=== PATIENT | female | born 1955 | race African-American/Black ===

== ENCOUNTER → 2016-09-14 | Outpatient (CLI) | payer MEDICARE, OTHER ==
[2016-03-25 15:13] VITALS: BP 87/52
[~2016-09-14] MED LIST: ASPI81TA44 PO; ATOR40TA PO; ATORVASTATIN CA80 MG PO; CLOP75TA27 PO; FURO40TA4 PO; IBUP200C PO; IOHEXOL 180 MG/ML 10 ML VIAL. ONE; LISI1TAB5 PO; MELA3TAB PO; METO25TA2 PO; NICO1PAT21 TP; PANT40GR PO; POTA10CA PO; TRAM50TA PO; methylPREDNISolone ACETATE 40 MG/ML VIAL. ONE; methylPREDNISolone ACETATE 80 MG/ML VIAL. ONE
--- NOTE | 2016-09-15 05:39 | PAIN ---
DATE OF SERVICE: 09/14/2016 DIAGNOSIS: Lumbar radiculopathy with lumbar degenerative disk disease and lumbar spinal stenosis. HISTORY OF PRESENT ILLNESS: The patient is a 60-year-old female who returns for followup status post lumbar epidural steroid injection x 2. The patient reports initially approximately 80% improvement, but now is about 40% improvement since her last injection, 08/05/2016. The patient reports the pain is returning in the left low back and leg as it was previously, mostly in the lateral aspect of the thigh, posterior thigh, and anterior thigh on the left side. The patient reports no significant pain on the right side, but also some pain in the mid and low back on the left. The patient reports it as a 7 on a scale of 10, describes it as aching and dull with radiating pain as noted, worse with standing and walking, changing positions, sitting and waking her from sleep, once again, no bowel or bladder incontinence, no new motor or sensory deficits. PHYSICAL EXAMINATION: VITAL SIGNS: The patient's blood pressure 141/87, pulse 84, respirations 18, temperature 98.2 degrees Fahrenheit, weight is 212 pounds. GENERAL: The patient is awake, alert, oriented, appropriate, very pleasant demeanor. HEENT: Shows normocephalic, atraumatic. Extraocular movements are intact and symmetrical. Oral cavity shows mucous membranes moist and pink. Dentition is intact. NECK: Shows anterior throat supple without palpable lymphadenopathy noted. Swallow reflex is symmetrical. Neck shows full rotational motion of the cervical spine without difficulty. CHEST: Shows normal on inspection. Breath sounds are clear to auscultation bilaterally. HEART: Shows S1 and S2 clear. ABDOMEN: Obese, soft, nontender, nondistended. No palpable organomegaly is noted. BACK: Shows spine grossly midline. Slight exaggeration of thoracic kyphosis and some mild flattening of lumbar lordotic curvature. Lumbar paraspinous musculature shows some moderate tenderness with palpation bilaterally, more on the left than the right in the lower lumbar distribution, is more firm on the left than the right, but appears roughly symmetrical. No tenderness over the sacrum or sacroiliac regions. The patient shows good rotational motion of the lumbar spine, both laterally as well as extension and flexion without difficulty. EXTREMITIES: Lower extremities showed deep tendon reflexes 1+ in the patellar and tendo calcaneus tendons are equal. Motor exam is strong with 5/5 dorsiflexion, extension, quadriceps and hamstring flexion and is symmetrical. PLAN: The patient's old chart was reviewed as her current medication regimen updated. Current review of systems updated today as well. We discussed options and will proceed with a lumbar epidural steroid injection, the third in the series with fluoroscopic guidance. Risks were again discussed including, but not limited to bleeding, infection, possibility of epidural hematoma, subsequent neurologic compromise, dural puncture, headaches, spinal cord and/or nerve damage, side effects of steroid medication, and poor results regarding pain control. The patient understands and wishes to proceed. The patient will return to clinic in approximately 2 weeks for followup, was counseled on return appointment, activity level, and side effects to be aware of. DIAGNOSIS: Lumbar radiculopathy with lumbar spinal stenosis and degenerative disk disease. PROCEDURE: Lumbar epidural steroid injection, translaminar approach at the L4-L5 level with fluoroscopic guidance under sterile prep and drape using local anesthesia. Medication injected 120 mg Depo-Medrol plus 10 mL preservative-free normal saline and 2 mL Isovue for contrast. Condition at discharge is stable. The patient tolerated procedure well, had no complications. HELADIO VOGT MD DR: YOGESH/richard JOB#: [id number] / [id number]
== END ==
LOC: PNCL 08:54
PROVIDERS: ATTEND Anesthesiology
DX: M51.16 Intervertebral disc disorders with radiculopathy, lumbar region (principal); M48.06 Spinal stenosis, lumbar region; M19.90 Unspecified osteoarthritis, unspecified site; M81.0 Age-related osteoporosis without current pathological fracture; F32.9 Major depressive disorder, single episode, unspecified; I10 Essential (primary) hypertension; J44.9 Chronic obstructive pulmonary disease, unspecified; Z90.710 Acquired absence of both cervix and uterus; Z90.49 Acquired absence of other specified parts of digestive tract
CPT/HCPCS: 62323; J1030; J1040

== ENCOUNTER → 2017-02-01 | Outpatient (CLI) | payer MEDICARE, OTHER ==
[2016-03-25 15:13] VITALS: BP 87/52
[~2017-02-01] MED LIST changes: -IOHEXOL 180 MG/ML 10 ML VIAL. ONE; -POTA10CA PO; +POTASSIUM CHLO10 MEQ PO; -methylPREDNISolone ACETATE 40 MG/ML VIAL. ONE; -methylPREDNISolone ACETATE 80 MG/ML VIAL. ONE
--- NOTE | 2017-02-01 15:33 | RAD ---
DATE: 02/01/2017 EXAM: DIGITAL SCREEN BILAT W/CAD HISTORY: Screening COMPARISON: 12/16/2015 This study was interpreted with the benefit of Computerized Aided Detection (CAD). FINDINGS: Breast Density: SCATTERED The breast parenchyma shows scattered fibroglandular densities. Breast parenchyma level B. There has been little change compared to the previous exam IMPRESSION: Benign findings BI-RADS CATEGORY: 2 BENIGN FINDING(S) RECOMMENDED FOLLOW-UP: 12M 12 MONTH FOLLOW-UP PQRS compliance statement: Patient information was entered into a reminder system with a target due date 02/01/2018 for the next mammogram. Mammography is a sensitive method for finding small breast cancers, but it does not detect them all and is not a substitute for careful clinical examination. A negative mammogram does not negate a clinically suspicious finding and should not result in delay in biopsying a clinically suspicious abnormality. "Our facility is accredited by the [employer] Mammography Program."
== END | disposition home or self-care (01) ==
LOC: MAMMO 14:43
PROVIDERS: ATTEND Internal Medicine
DX: Z12.31 Encounter for screening mammogram for malignant neoplasm of breast (principal)
CPT/HCPCS: G0202; 77067

== ENCOUNTER 2017-07-12 17:19 | Emergency (ER) | payer MEDICARE, OTHER ==
[~2017-07-12] VITALS: Ht 160 cm; Wt 90.7 kg
[~2017-07-12 17:19] MED LIST changes: +ALBU2.5V5 NEB; +AMMO226L TP; +ASPI-482 PO; -CLOP75TA27 PO; +CLOP75TA57 PO; +FURO80TA72 PO; +LOSA25TA4 PO; -MELA3TAB PO; +MELA3TAB2 PO; +POTA20TA82 PO; +VENTOLIN HFA18 GM INH
[2017-07-12 18:16] LABS: BASO # 0.1 x10^3/uL (0.0-0.2); BASO % 1 % (0-3); EOS % 2 % (0-3); HEMATOCRIT 42.1 % (36.0-47.0); HEMOGLOBIN 13.8 g/dL (12.0-15.5); LYMPH # 4.8 x10^3/uL (1.0-4.8); LYMPH % 45 % (24-48); MEAN CORPUSCULAR HEMOGLOBIN 31 pg (25-35); MEAN CORPUSCULAR HGB CONC 33 g/dL (31-37); MEAN CORPUSCULAR VOLUME 95 fL (79-100); MONO % 6 % (0-9); NEUT % 45 % (31-73); PLATELET COUNT 306 x10^3/uL (140-400); RED BLOOD COUNT 4.42 x10^6/uL (3.50-5.40); RED CELL DISTRIBUTION WIDTH 14.8 % (11.5-14.5); WHITE BLOOD COUNT 10.7 x10^3/uL (4.0-11.0)
[2017-07-12 18:29] LABS: CALCIUM 9.3 mg/dL (8.5-10.1); CREATININE 1.1 mg/dL (0.6-1.0); GFR 61.5; POTASSIUM 3.8 mmol/L (3.5-5.1)
[2017-07-12 18:35] LABS: ALBUMIN 3.1 g/dL (3.4-5.0); ALBUMIN/GLOBULIN RATIO 0.7 (1.0-1.7); TOTAL BILIRUBIN 0.2 mg/dL (0.2-1.0); TOTAL PROTEIN 7.5 g/dL (6.4-8.2)
--- NOTE | 2017-07-12 18:59 | PHYS DOC ---
Past Medical History Past Medical History: COPD, High Cholesterol, Hypertension, [place], Other Additional Past Medical Histor: HEP B Past Surgical History: Cholecystectomy, Hysterectomy, Other Additional Past Surgical Histo: HERNIA REPAIR Alcohol Use: None Drug Use: Marijuana Adult General Chief Complaint Chief Complaint: CHEST PAIN [facility] HPI Patient is a 61 year old female who presents with on a four-hour history of middle chest pain that's been intermittent in intensity mild nonexertional described as burning she believes is due to reflux. Recent diagnosis of CHF denies any coronary artery disease or blockages. History of COPD, hypertension and tobacco use. Review of Systems Review of Systems Constitutional: Denies fever or chills [] Eyes: Denies change in visual acuity, redness, or eye pain [] HENT: Denies nasal congestion or sore throat [] Respiratory: Denies cough or shortness of breath [] Cardiovascular: No additional information not addressed in HPI [] GI: Denies abdominal pain, nausea, vomiting, bloody stools or diarrhea [] : Denies dysuria or hematuria [] Musculoskeletal: Denies back pain or joint pain [] Integument: Denies rash or skin lesions [] Neurologic: Denies headache, focal weakness or sensory changes [] Endocrine: Denies polyuria or polydipsia [] All other systems were reviewed and found to be within normal limits, except as documented in this note. Allergies Allergies Allergies Coded Allergies Type Severity Reaction Last Updated Verified ampicillin Allergy Intermediate 07/11/15 Yes Physical Exam Physical Exam Constitutional: Well developed, well nourished, no acute distress, non-toxic appearance. [] HENT: Normocephalic, atraumatic, bilateral external ears normal, oropharynx moist, no oral exudates, nose normal. [] Eyes: PERRLA, EOMI, conjunctiva normal, no discharge. [] Neck: Normal range of motion, no tenderness, supple, no stridor. [] Cardiovascular:Heart rate regular rhythm, no murmur [] Lungs & Thorax: Bilateral breath sounds clear to auscultation [] Abdomen: Bowel sounds normal, soft, no tenderness, no masses, no pulsatile masses. [] Skin: Warm, dry, no erythema, no rash. [] Back: No tenderness, no CVA tenderness. [] Extremities: No tenderness, no cyanosis, no clubbing, ROM intact, no edema. [] Neurologic: Alert and oriented X 3, normal motor function, normal sensory function, no focal deficits noted. [] Psychologic: Affect normal, judgement normal, mood normal. [] Current Patient Data Vital Signs Vital Signs Date Time Temp Pulse Resp B/P (MAP) Pulse Ox O2 Delivery O2 Flow Rate FiO2 07/12/17 19:00 82 18 129/60 (83) 98 Room Air 07/12/17 17:25 98.4 98.4 Lab Values Laboratory Tests Test 07/12/17 17:33 White Blood Count 10.7 x10^3/uL (4.0-11.0) Red Blood Count 4.42 x10^6/uL (3.50-5.40) Hemoglobin 13.8 g/dL (12.0-15.5) Hematocrit 42.1 % (36.0-47.0) Mean Corpuscular Volume 95 fL (79-100) Mean Corpuscular Hemoglobin 31 pg (25-35) Mean Corpuscular Hemoglobin Concent 33 g/dL (31-37) Red Cell Distribution Width 14.8 % (11.5-14.5) H Platelet Count 306 x10^3/uL (140-400) Neutrophils (%) (Auto) 45 % (31-73) Lymphocytes (%) (Auto) 45 % (24-48) Monocytes (%) (Auto) 6 % (0-9) Eosinophils (%) (Auto) 2 % (0-3) Basophils (%) (Auto) 1 % (0-3) Neutrophils # (Auto) 4.8 x10^3uL (1.8-7.7) Lymphocytes # (Auto) 4.8 x10^3/uL (1.0-4.8) Monocytes # (Auto) 0.7 x10^3/uL (0.0-1.1) Eosinophils # (Auto) 0.2 x10^3/uL (0.0-0.7) Basophils # (Auto) 0.1 x10^3/uL (0.0-0.2) Sodium Level 141 mmol/L (136-145) Potassium Level 3.8 mmol/L (3.5-5.1) Chloride Level 106 mmol/L (98-107) Carbon Dioxide Level 28 mmol/L (21-32) Anion Gap 7 (6-14) Blood Urea Nitrogen 17 mg/dL (7-20) Creatinine 1.1 mg/dL (0.6-1.0) H Estimated GFR (Cockcroft-Gault) 61.5 BUN/Creatinine Ratio 15 (6-20) Glucose Level 97 mg/dL (70-99) Calcium Level 9.3 mg/dL (8.5-10.1) Total Bilirubin 0.2 mg/dL (0.2-1.0) Aspartate Amino Transferase (AST) 16 U/L (15-37) Alanine Aminotransferase (ALT) 20 U/L (14-59) Alkaline Phosphatase 166 U/L (46-116) H Troponin I Quantitative < 0.017 ng/mL (0.000-0.055) Total Protein 7.5 g/dL (6.4-8.2) Albumin 3.1 g/dL (3.4-5.0) L Albumin/Globulin Ratio 0.7 (1.0-1.7) L Laboratory Tests 07/12/17 17:33 Laboratory Tests 07/12/17 17:33 EKG EKG EKG sinus rhythm rate of 86 no STEMI QTC 439 my interpretation[] Radiology/Procedures Radiology/Procedures Chest x-ray no acute cardiopulmonary process seen my interpretation my review of the images[] Course & Med Decision Making Course & Med Decision Making Pertinent Labs and Imaging studies reviewed. (See chart for details) [Patient's workup was negative patient feels better and wants to go home] Dragon Disclaimer Dragon Disclaimer This electronic medical record was generated, in whole or in part, using a voice recognition dictation system. Departure Departure Impression: Primary Impression: Acute chest pain Disposition: 01 HOME, SELF-CARE Condition: STABLE Referrals: LONI ROSADO MD (PCP) Patient Instructions: Chest Pain (Nonspecific), Yzqh-le-Anit Scripts Sucralfate (CARAFATE) 1 Gm Tablet 1 TAB PO QID, #120 TAB 1 Refill Prov: SIDNEY LEMON MD 07/12/17 Omeprazole Magnesium (PRILOSEC OTC) 20 Mg Tablet. 1 TAB PO DAILY, #14 TAB 0 Refills Prov: SIDNEY LEMON MD 07/12/17 SIDNEY LEMON MD Jul 12, 2017 18:59
[2017-07-12 19:00] VITALS: BP 129/60
[2017-07-12] MEDS ORDERED: SUCR1TAB35 PO (19:02)
[2017-07-12] MEDS ORDERED: OMEP20TA63 PO (19:02)
--- NOTE | 2017-07-13 07:08 | EKG ---
[facility] [address] [place] [address] Test Date: 2017-07-12 Test Time: 17:34:08 Pat Name: JUVENCIO FLORES Department: Room: Gender: F Poster: : 1955 Requested By: SIDNEY LEMON Order Number: [id number] Reading MD: Fahad Serrano MD Measurements Intervals [place] Rate: 86 P: 65 AK: 136 QRS: 60 QRSD: 82 T: 43 QT: 364 QTc: 439 Interpretive Statements SINUS RHYTHM VENTRICULAR PREMATURE COMPLEX(ES) ATRIAL PREMATURE COMPLEX(ES) Electronically Signed On 07-13-2017 8:31:44 PRODUCT SUPPORT TECHNICIAN by Fahad Serrano MD
--- NOTE | 2017-07-13 07:38 | RAD ---
Portable chest, 07/12/2017: History: Chest pain Comparison is made to a study from 06/07/2017. The heart size and pulmonary vascularity are normal. A calcified granuloma is present in the right base. No acute infiltrates are seen. There is no evidence of pleural fluid. IMPRESSION: No acute cardiopulmonary abnormality is detected.
== END 2017-07-12 19:09 | disposition home or self-care (01) ==
LOC: ER 17:19
DX: R07.89 Other chest pain (principal); J44.9 Chronic obstructive pulmonary disease, unspecified; E78.00 Pure hypercholesterolemia, unspecified; I10 Essential (primary) hypertension; F12.10 Cannabis abuse, uncomplicated; I25.2 Old myocardial infarction; F17.200 Nicotine dependence, unspecified, uncomplicated; Z90.710 Acquired absence of both cervix and uterus; Z90.49 Acquired absence of other specified parts of digestive tract; Z88.1 Allergy status to other antibiotic agents
CPT/HCPCS: 36415; 71010; 80053; 84484; 85025; 93005; 99285-25

== ENCOUNTER → 2017-08-30 | Outpatient (CLI) | payer OTHER | END | disposition home or self-care (01) | LOC: RT 18:31 | DX: G47.30 Sleep apnea, unspecified (principal); R06.83 Snoring; R53.83 Other fatigue | CPT/HCPCS: 95810 ==

== ENCOUNTER → 2018-02-07 | Outpatient (CLI) | payer OTHER | END | disposition home or self-care (01) | LOC: MAMMO 08:47 | DX: Z12.31 Encounter for screening mammogram for malignant neoplasm of breast (principal) | CPT/HCPCS: 77067 ==

== ENCOUNTER 2018-11-01 20:23 | Emergency (ER) | payer OTHER ==
[~2018-11-01] VITALS: Ht 160 cm; Wt 89.8 kg
[~2018-11-01 20:23] MED LIST changes: -ASPI81TA44 PO; +ASPI81TA59 PO; -LOSA25TA4 PO; +LOSA25TA54 PO; +OMEP20TA63 PO; +POTA10TA12 PO; -POTASSIUM CHLO10 MEQ PO; +SUCR1TAB35 PO
[2018-11-01 21:00] VITALS: BP 169/77
[2018-11-01] MEDS ORDERED: DEXAMETHASONE 4 MG TABLET PO ONE (21:15)
[2018-11-01] MEDS ORDERED: PRED20TA PO (21:45)
--- NOTE | 2018-11-01 21:45 | PHYS DOC ---
Past Medical History Past Medical History: CHF, COPD, High Cholesterol, Hypertension, [place], Other Additional Past Medical Histor: HEP B Past Surgical History: Cholecystectomy, Hysterectomy, Other Additional Past Surgical Histo: HERNIA REPAIR Smoking: Cigarettes Alcohol Use: None Drug Use: Marijuana Adult General Chief Complaint Chief Complaint: COUGH HPI HPI 62 y/o female presents with 5 day history of cough. Reports now with right sided lateral chest pain x 1 hour. Denies fever/chills. Denies shortness of breath. Denies trauma. Reports some associated nasal congestion. Review of Systems Review of Systems Constitutional: Denies fever or chills [] Eyes: Denies change in visual acuity, redness, or eye pain [] HENT: Reports nasal congestion; denies sore throat [] Respiratory: Reports cough; denies shortness of breath [] Cardiovascular: Reports right sided chest wall pain, denies palpitations GI: Denies abdominal pain, nausea, vomiting, or diarrhea [] : Denies dysuria or hematuria [] Musculoskeletal: Denies back pain or joint pain [] Integument: Denies rash or skin lesions [] Neurologic: Denies headache, focal weakness or sensory changes [] Complete systems were reviewed and found to be within normal limits, except as documented in this note. Current Medications Current Medications Current Medications Medications (Trade) Dose Ordered Sig/Óscar Start Time Stop Time Status Last Admin Dose Admin Dexamethasone (Decadron) 10 mg 1X ONCE 11/01/18 21:15 11/01/18 21:16 DC 11/01/18 21:36 10 MG Allergies Allergies Allergies Coded Allergies Type Severity Reaction Last Updated Verified ampicillin Allergy Intermediate 07/11/15 Yes Physical Exam Physical Exam Constitutional: Well developed, well nourished, no acute distress, non-toxic appearance. [] HENT: Normocephalic, atraumatic, oropharynx moist, nasal congestion noted Eyes: Conjunctiva normal, no discharge. [] Neck: Normal range of motion, no tenderness, supple, no meningeal signs Cardiovascular: Heart rate regular rhythm, no murmur [] Lungs & Thorax: Bilateral breath sounds clear to auscultation [] Abdomen: Soft, no tenderness Skin: Warm, dry, no erythema, no rash. [] Back: No tenderness, no CVA tenderness. [] Extremities: No tenderness, ROM intact Neurologic: Alert and oriented X 3, normal motor function, normal sensory function, no focal deficits noted. [] Psychologic: Affect normal, judgement normal, mood normal. [] Current Patient Data Vital Signs Vital Signs Date Time Temp Pulse Resp B/P (MAP) Pulse Ox O2 Delivery O2 Flow Rate FiO2 11/01/18 21:00 105 19 169/77 (107) 100 Room Air 11/01/18 20:45 98.2 98.2 EKG EKG [] Radiology/Procedures Radiology/Procedures PROCEDURE: CHEST PA & LATERAL CHEST PA LATERAL History: Cough and congestion for a week Comparison: June 07, 2017 Findings: 2 views of the chest are submitted. There is no infiltrate, pneumothorax, or effusion. The cardiac silhouette is stable. There is a small nodule of the lateral right lung base as previously, likely granuloma. Impression: 1. There is no evidence of acute cardiopulmonary disease. Electronically signed by: Thien Thomason MD (11/01/2018 11:11 PM) [facility] Course & Med Decision Making Course & Med Decision Making Pertinent Labs and Imaging studies reviewed. (See chart for details) Patient presents with HPI and physical exam consistent for bronchitis. CXR without acute process. Symptomatic treatment provided. Patient stable for discharge home with close outpatient follow-up with PCP. Discussed findings and plan with patient, who acknowledges understanding and agreement. Dragon Disclaimer Dragon Disclaimer This electronic medical record was generated, in whole or in part, using a voice recognition dictation system. Departure Departure Impression: Primary Impression: Bronchitis Disposition: HOME, SELF-CARE Condition: STABLE Referrals: LONI ROSADO MD (PCP) Patient Instructions: Acute Bronchitis, Pris-sc-Gqkj Scripts Prednisone (PREDNISONE) 20 Mg Tablet 2 TAB PO DAILY, #8 TAB Start this medication tomorrow 11/02/18 Prov: TRICIA EDOUARD DO 11/01/18 TRICIA EDOUARD DO Nov 01, 2018 21:45
--- NOTE | 2018-11-01 23:14 | RAD ---
CHEST PA LATERAL History: Cough and congestion for a week Comparison: June 07, 2017 Findings: 2 views of the chest are submitted. There is no infiltrate, pneumothorax, or effusion. The cardiac silhouette is stable. There is a small nodule of the lateral right lung base as previously, likely granuloma. Impression: 1. There is no evidence of acute cardiopulmonary disease. Electronically signed by: Thien Thomason MD (11/01/2018 11:11 PM) [facility]
== END 2018-11-01 21:50 | disposition home or self-care (01) ==
LOC: ER 20:23
DX: J40 Bronchitis, not specified as acute or chronic (principal); I11.0 Hypertensive heart disease with heart failure; I50.9 Heart failure, unspecified; J44.9 Chronic obstructive pulmonary disease, unspecified; E78.00 Pure hypercholesterolemia, unspecified; I25.2 Old myocardial infarction; Z88.1 Allergy status to other antibiotic agents
CPT/HCPCS: 71046; 99283; J8540

== ENCOUNTER → 2019-02-07 | Outpatient (CLI) | payer OTHER ==
[~2019-02-07] MED LIST changes: +PRED20TA PO
--- NOTE | 2019-02-07 13:21 | RAD ---
DATE: 02/07/2019 EXAM: DIGITAL SCREEN BILAT W/CAD HISTORY: Routine screening COMPARISON: 02/07/2018 This study was interpreted with the benefit of Computerized Aided Detection (CAD). Breast Density: SCATTERED The breast parenchyma shows scattered fibroglandular densities. Breast parenchyma level B. FINDINGS: There is an unchanged small nodule in the posterior aspect of the left breast. No new or enlarging breast densities are seen. Benign type calcifications are present. No suspicious microcalcifications have developed. IMPRESSION: Stable mammograms without evidence of malignancy. BI-RADS CATEGORY: 2 BENIGN FINDING(S) RECOMMENDED FOLLOW-UP: 12M 12 MONTH FOLLOW-UP PQRS compliance statement: Patient information was entered into a reminder system with a target due date for the next mammogram. Mammography is a sensitive method for finding small breast cancers, but it does not detect them all and is not a substitute for careful clinical examination. A negative mammogram does not negate a clinically suspicious finding and should not result in delay in biopsying a clinically suspicious abnormality. "Our facility is accredited by the [employer] Mammography Program."
== END | disposition home or self-care (01) ==
LOC: MAMMO 12:05
PROVIDERS: ATTEND Internal Medicine
DX: Z12.31 Encounter for screening mammogram for malignant neoplasm of breast (principal); N63.20 Unspecified lump in the left breast, unspecified quadrant; N64.89 Other specified disorders of breast
CPT/HCPCS: 77067

== ENCOUNTER 2019-05-16 02:06 | Emergency (ER) | payer OTHER ==
[~2019-05-16] VITALS: Ht 160 cm; Wt 88.5 kg
[~2019-05-16 02:06] MED LIST changes: +LISI1TAB19 PO; -LISI1TAB5 PO; -MELA3TAB2 PO; +MELA3TAB56 PO
[2019-05-16] MEDS ORDERED: DOXY100C2 PO (03:56)
--- NOTE | 2019-05-16 03:57 | PHYS DOC ---
Past Medical History Past Medical History: CHF, COPD, High Cholesterol, Hypertension, [place], Other Additional Past Medical Histor: HEP B Past Surgical History: Cholecystectomy, Hysterectomy, Other Additional Past Surgical Histo: HERNIA REPAIR Alcohol Use: None Drug Use: Marijuana Adult General Chief Complaint Chief Complaint: SORE THROAT HPI HPI Patient is a 63 year old [f__sex] who presents with [] Review of Systems Review of Systems Constitutional: Denies fever or chills [] Eyes: Denies change in visual acuity, redness, or eye pain [] HENT: Denies nasal congestion or sore throat [] Respiratory: Denies cough or shortness of breath [] Cardiovascular: No additional information not addressed in HPI [] GI: Denies abdominal pain, nausea, vomiting, bloody stools or diarrhea [] : Denies dysuria or hematuria [] Musculoskeletal: Denies back pain or joint pain [] Integument: Denies rash or skin lesions [] Neurologic: Denies headache, focal weakness or sensory changes [] Endocrine: Denies polyuria or polydipsia [] All other systems were reviewed and found to be within normal limits, except as documented in this note. Allergies Allergies Allergies Coded Allergies Type Severity Reaction Last Updated Verified ampicillin Allergy Intermediate 07/11/15 Yes Physical Exam Physical Exam Constitutional: Well developed, well nourished, no acute distress, non-toxic appearance. [] HENT: Normocephalic, atraumatic, bilateral external ears normal, oropharynx moist, no oral exudates, nose normal. [] Eyes: PERRLA, EOMI, conjunctiva normal, no discharge. [] Neck: Normal range of motion, no tenderness, supple, no stridor. [] Cardiovascular:Heart rate regular rhythm, no murmur [] Lungs & Thorax: Bilateral breath sounds clear to auscultation [] Abdomen: Bowel sounds normal, soft, no tenderness, no masses, no pulsatile masses. [] Skin: Warm, dry, no erythema, no rash. [] Back: No tenderness, no CVA tenderness. [] Extremities: No tenderness, no cyanosis, no clubbing, ROM intact, no edema. [] Neurologic: Alert and oriented X 3, normal motor function, normal sensory function, no focal deficits noted. [] Psychologic: Affect normal, judgement normal, mood normal. [] Current Patient Data Vital Signs Vital Signs Date Time Temp Pulse Resp B/P (MAP) Pulse Ox O2 Delivery O2 Flow Rate FiO2 05/16/19 02:15 98.1 98 20 134/86 (102) 98 Room Air 98.1 EKG EKG [] Radiology/Procedures Radiology/Procedures [] Course & Med Decision Making Course & Med Decision Making Pertinent Labs and Imaging studies reviewed. (See chart for details) [] Dragon Disclaimer Dragon Disclaimer This electronic medical record was generated, in whole or in part, using a voice recognition dictation system. Departure Departure Impression: Primary Impression: Bronchitis Additional Impression: Sore throat (viral) Disposition: HOME, SELF-CARE Condition: STABLE Referrals: LONI ROSADO MD (PCP) Patient Instructions: Acute Bronchitis, Ybvh-[id number], Sore Throat, [id number] Additional Instructions: XR reviewed without consolidation Take antibiotics as prescribed for bronchitis Recommend smoking cessation Tylenol/Motrin as needed Consider mucinex OTC to help with breaking up mucus Return to the ER with complaints of altered mental status, fever, worsening SOB Scripts Doxycycline Hyclate (DOXYCYCLINE HYCLATE) 100 Mg Capsule 1 CAP PO BID, #14 CAP Prov: HOUSTON MARTE MD 05/16/19 Problem Qualifiers HOUSTON MARTE MD May 16, 2019 03:57
[2019-05-16 04:00] VITALS: BP 142/86
--- NOTE | 2019-05-16 04:46 | RAD ---
AP chest x-ray HISTORY: Cough and chills. COMPARISON: Chest x-ray November 01, 2018. FINDINGS: Heart size normal. Mediastinal silhouette is normal. No pneumothorax, pulmonary opacities or pleural effusions. Small calcified granuloma right lung base. The bones are unremarkable. IMPRESSION: No acute process. Electronically signed by: Chaitanya Centeno MD (05/16/2019 4:43 AM) [id number]
--- NOTE | 2019-05-16 15:37 | PHYS DOC ---
Past Medical History Past Medical History: CHF, COPD, High Cholesterol, Hypertension, [place], Other Additional Past Medical Histor: HEP B Past Surgical History: Cholecystectomy, Hysterectomy, Other Additional Past Surgical Histo: HERNIA REPAIR Alcohol Use: None Drug Use: Marijuana Adult General Chief Complaint Chief Complaint: SORE THROAT HPI HPI 63 yo female presents to the ER with complaints of cough, productive, sore throat x 1 week. Patient states she has been using OTC medications without relief. + tobacco use. She does have a history of HTN. Patient states subjective fever on exam. She denies chest pain, nausea, vomiting, abdominal pain, diarrhea. Review of Systems Review of Systems Constitutional: Denies fever or chills [] Eyes: Denies change in visual acuity, redness, or eye pain [] HENT: + sore throat Respiratory: + productive cough Cardiovascular: No additional information not addressed in HPI [] GI: Denies abdominal pain, nausea, vomiting, bloody stools or diarrhea [] Integument: Denies rash or skin lesions [] Neurologic: Denies headache, focal weakness or sensory changes [] All other systems were reviewed and found to be within normal limits, except as documented in this note. Allergies Allergies Allergies Coded Allergies Type Severity Reaction Last Updated Verified ampicillin Allergy Intermediate 07/11/15 Yes Physical Exam Physical Exam Constitutional: Well developed, well nourished, no acute distress, non-toxic appearance. [] HENT: Normocephalic, atraumatic, bilateral external ears normal, oropharynx moist, no oral exudates, nose normal. [] Eyes: PERRLA, EOMI, conjunctiva normal, no discharge. [] Cardiovascular:Heart rate regular rhythm, no murmur [] Lungs & Thorax: Bilateral breath sounds clear to auscultation [] Abdomen: Bowel sounds normal, soft, no tenderness, no masses, no pulsatile masses. [] Skin: Warm, dry, no erythema, no rash. [] Extremities: No tenderness, no edema. [] Neurologic: Alert and oriented X 3, no focal deficits noted. [] Psychologic: Affect normal, judgement normal, mood normal. [] Current Patient Data Vital Signs Vital Signs Date Time Temp Pulse Resp B/P (MAP) Pulse Ox O2 Delivery O2 Flow Rate FiO2 05/16/19 04:00 88 142/86 (104) 100 Room Air 05/16/19 02:15 98.1 20 98.1 EKG EKG [] Radiology/Procedures Radiology/Procedures [facility] [address] [place] [address] IMAGING REPORT Signed PATIENT: JUVENCIO FLORESACCOUNT: [id number] : 1955 LOCATION: ER AGE: 63 SEX: F EXAM STATUS: DEP ER ORD. PHYSICIAN: HOUSTON MARTE MD REASON: cough, chills PROCEDURE: CHEST AP ONLY AP chest x-ray HISTORY: Cough and chills. COMPARISON: Chest x-ray November 01, 2018. FINDINGS: Heart size normal. Mediastinal silhouette is normal. No pneumothorax, pulmonary opacities or pleural effusions. Small calcified granuloma right lung base. The bones are unremarkable. IMPRESSION: No acute process. Electronically signed by: Coty Centeno MD (05/16/2019 4:43 AM) [facility] DICTATED and SIGNED BY: COTY CENTENO MD DATE: 05/16/19 0443 [] Course & Med Decision Making Course & Med Decision Making Pertinent Labs and Imaging studies reviewed. (See chart for details) []63 yo female presents to the ER with complaints of cough, productive, sore throat x 1 week. Patient states she has been using OTC medications without relief. + tobacco use. She does have a history of HTN. Patient states subjective fever on exam. She denies chest pain, nausea, vomiting, abdominal pain, diarrhea. Imaging reviewed, no evidecne of acute process, this is likely related to bronchitis type infection. Plan for abx, continue inhalers as you are doing. Return to the ER with worsening SOB, fever, nausea/vomiting, altered mental status. Discussed dc plans with patient. Dragon Disclaimer Dragon Disclaimer This electronic medical record was generated, in whole or in part, using a voice recognition dictation system. Departure Departure Impression: Primary Impression: Bronchitis Additional Impression: Sore throat (viral) Disposition: HOME, SELF-CARE Condition: STABLE Referrals: LONI ROSADO MD (PCP) Patient Instructions: Acute Bronchitis, [id number]-[id number], Sore Throat, [id number] Additional Instructions: XR reviewed without consolidation Take antibiotics as prescribed for bronchitis Recommend smoking cessation Tylenol/Motrin as needed Consider mucinex OTC to help with breaking up mucus Return to the ER with complaints of altered mental status, fever, worsening SOB Scripts Doxycycline Hyclate (DOXYCYCLINE HYCLATE) 100 Mg Capsule 1 CAP PO BID, #14 CAP Prov: HOUSTON MARTE MD 05/16/19 Problem Qualifiers HOUSTON MARTE MD May 16, 2019 15:37
== END 2019-05-16 04:04 | disposition home or self-care (01) ==
LOC: ER 02:06
DX: J02.8 Acute pharyngitis due to other specified organisms (principal); B97.89 Other viral agents as the cause of diseases classified elsewhere; J44.9 Chronic obstructive pulmonary disease, unspecified; I11.0 Hypertensive heart disease with heart failure; I50.9 Heart failure, unspecified; I25.2 Old myocardial infarction; Z90.49 Acquired absence of other specified parts of digestive tract; Z90.710 Acquired absence of both cervix and uterus; Z88.1 Allergy status to other antibiotic agents
CPT/HCPCS: 71045; 99283

== ENCOUNTER → 2020-02-07 | Outpatient (CLI) | payer OTHER ==
[~2020-02-07] MED LIST changes: +DOXY100C2 PO; +MELA3TAB4 PO; -MELA3TAB56 PO; +POTA20TA4 PO; -POTA20TA82 PO
--- NOTE | 2020-02-08 17:24 | RAD ---
DATE: 02/07/2020 1:49 PM EXAM: DIGITAL SCREEN BILAT W/CAD HISTORY: Screening COMPARISON: 02/07/2019 Bilateral full field craniocaudal and mediolateral oblique images were obtained using digital technique. This study was interpreted with the benefit of Computerized Aided Detection (CAD). FINDINGS: Breast Density: SCATTERED The breast parenchyma shows scattered fibroglandular densities. Breast parenchyma level B No suspicious masses, microcalcifications or architectural distortion is present to suggest malignancy in either breast. The visualized axillae are unremarkable. IMPRESSION: No mammographic evidence of malignancy. BI-RADS CATEGORY: 1 NEGATIVE RECOMMENDED FOLLOW-UP: 12M 12 MONTH FOLLOW-UP Annual screening mammography is recommended, unless clinically indicated sooner based on symptoms or change in physical exam. PQRS compliance statement: Patient information was entered into a reminder system with a target due date 02/07/2021 for the next mammogram. Mammography is a sensitive method for finding small breast cancers, but it does not detect them all and is not a substitute for careful clinical examination. A negative mammogram does not negate a clinically suspicious finding and should not result in delay in biopsying a clinically suspicious abnormality. "Our facility is accredited by the [employer] Mammography Program."
== END ==
LOC: MAMMO 13:47
PROVIDERS: ATTEND Internal Medicine
DX: Z12.31 Encounter for screening mammogram for malignant neoplasm of breast (principal)
CPT/HCPCS: 77067

== ENCOUNTER 2020-03-09 12:20 | Emergency (ER) | payer OTHER ==
[~2020-03-09] VITALS: Ht 157.5 cm; Wt 92.3 kg
[2020-03-09] MEDS ORDERED: LIDO:MAALOX 1:1 20 ML SINGLE DOSE. PO ONE (12:45)
[2020-03-09] MEDS ORDERED: SUCR1ORA5 PO (13:55)
[2020-03-09] MEDS ORDERED: FAMO-63 PO (13:55)
--- NOTE | 2020-03-09 13:55 | PHYS DOC ---
Past Medical History Past Medical History: CHF, COPD, High Cholesterol, Hypertension, [place], Other Additional Past Medical Histor: HEP B Past Surgical History: Cholecystectomy, Hysterectomy, Other Additional Past Surgical Histo: HERNIA REPAIR Smoking Status: Current Every Day Smoker Alcohol Use: None Drug Use: Marijuana General Adult EDM: Chief Complaint: GI PROBLEM HPI: HPI: Patient is a 64 year old [f__sex] who presents with [] Review of Systems: Review of Systems: Constitutional: Denies fever or chills. [] Eyes: Denies change in visual acuity. [] HENT: Denies nasal congestion or sore throat. [] Respiratory: Denies cough or shortness of breath. [] Cardiovascular: Denies chest pain or edema. [] GI: Denies abdominal pain, nausea, vomiting, bloody stools or diarrhea. [] : Denies dysuria. [] Musculoskeletal: Denies back pain or joint pain. [] Integument: Denies rash. [] Neurologic: Denies headache, focal weakness or sensory changes. [] Endocrine: Denies polyuria or polydipsia. [] Lymphatic: Denies swollen glands. [] Psychiatric: Denies depression or anxiety. [] Heart Score: Risk Factors: Risk Factors: DM, Current or recent (<one month) smoker, HTN, HLP, family hist ory of CAD, obesity. Risk Scores: Score 0 - 3: 2.5% MACE over next 6 weeks - Discharge Home Score 4 - 6: 20.3% MACE over next 6 weeks - Admit for Clinical Observation Score 7 - 10: 72.7% MACE over next 6 weeks - Early Invasive Strategies Current Medications: Current Medications Medications (Trade) Dose Ordered Sig/Óscar Start Time Stop Time Status Last Admin Dose Admin Multi-Ingredient Mouthwash/Gargle (Gi Cocktail) 20 ml 1X ONCE 03/09/20 12:45 03/09/20 12:48 DC 03/09/20 13:02 20 ML Allergies: Allergies: Allergies Coded Allergies Type Severity Reaction Last Updated Verified ampicillin Allergy Intermediate 07/11/15 Yes Physical Exam: PE: Constitutional: Well developed, well nourished, no acute distress, non-toxic appearance. [] HENT: Normocephalic, atraumatic, bilateral external ears normal, oropharynx moist, no oral exudates, nose normal. [] Eyes: PERRLA, EOMI, conjunctiva normal, no discharge. [] Neck: Normal range of motion, no tenderness, supple, no stridor. [] Cardiovascular:Heart rate regular rhythm, no murmur [] Lungs & Thorax: Bilateral breath sounds clear to auscultation [] Abdomen: Bowel sounds normal, soft, no tenderness, no masses, no pulsatile masses. [] Skin: Warm, dry, no erythema, no rash. [] Back: No tenderness, no CVA tenderness. [] Extremities: No tenderness, no cyanosis, no clubbing, ROM intact, no edema. [] Neurologic: Alert and oriented X 3, normal motor function, normal sensory function, no focal deficits noted. [] Psychologic: Affect normal, judgement normal, mood normal. [] Current Patient Data: Vital Signs: Vital Signs Date Time Temp Pulse Resp B/P (MAP) Pulse Ox O2 Delivery O2 Flow Rate FiO2 03/09/20 12:50 98.5 79 18 169/77 (107) 98 Room Air 98.5 EKG: EKG: [] Radiology/Procedures: Radiology/Procedures: [] Course & Med Decision Making: Course & Med Decision Making Pertinent Labs and Imaging studies reviewed. (See chart for details) [] Dragon Disclaimer: Dragon Disclaimer: This electronic medical record was generated, in whole or in part, using a voice recognition dictation system. Departure Departure Impression: Primary Impression: Sensation of foreign body in esophagus Disposition: HOME, SELF-CARE Condition: IMPROVED Referrals: LONI ROSADO MD (PCP) SHAMIKA FAY MD Patient Instructions: Esophageal Spasm, Esophagitis Scripts Famotidine (PEPCID) 20 Mg Tablet 20 MG PO BID, #20 TAB Prov: TRICIA EDOUARD DO 03/09/20 Sucralfate (CARAFATE) 1 Gm/10 Ml Oral.susp 10 ML PO QID, #200 ML 0 Refills AC and QHS Prov: TRICIA EDOUARD DO 03/09/20 Justicifation of Admission Dx: Justifications for Admission: Justification of Admission Dx: N/A TRICIA EDOUARD DO Mar 09, 2020 13:55
[2020-03-09] MEDS ORDERED: KETOROLAC 30 MG/ML VIAL. IM ONE (14:00)
[2020-03-09 14:05] VITALS: BP 161/72
== END 2020-03-09 14:05 | disposition home or self-care (01) ==
LOC: ER 12:20
DX: T18.198A Other foreign object in esophagus causing other injury, initial encounter (principal); R13.12 Dysphagia, oropharyngeal phase; J44.9 Chronic obstructive pulmonary disease, unspecified; E78.00 Pure hypercholesterolemia, unspecified; I11.0 Hypertensive heart disease with heart failure; I50.9 Heart failure, unspecified; I25.2 Old myocardial infarction; F17.200 Nicotine dependence, unspecified, uncomplicated; F12.90 Cannabis use, unspecified, uncomplicated; Z90.49 Acquired absence of other specified parts of digestive tract; Z90.710 Acquired absence of both cervix and uterus; Z98.890 Other specified postprocedural states; X58.XXXA Exposure to other specified factors, initial encounter; Y93.89 Activity, other specified; Y92.89 Other specified places as the place of occurrence of the external cause; Y99.8 Other external cause status
CPT/HCPCS: 96372; 99283; J1885

== ENCOUNTER → 2020-03-20 | Outpatient (CLI) | payer OTHER ==
[2020-03-09 14:05] VITALS: BP 161/72
[~2020-03-20] MED LIST changes: +FAMO-63 PO; -LISI1TAB19 PO; +LISI1TAB37 PO; +SUCR1ORA5 PO
--- NOTE | 2020-03-20 12:27 | RAD ---
EXAM: 1. RIGHT HIP, 2 VIEWS. 2. RIGHT FEMUR 2 VIEWS. HISTORY: Right hip pain, osteoarthritis. COMPARISON: None. FINDINGS: No fractures are identified throughout. There is moderately decreased femoral head/neck offset anteriorly at the right hip. The femoral head is mildly over coverage. Joint spaces appear preserved. There are moderate degenerative changes at the pubic symphysis. Osteophytosis and joint space narrowing indicate mild tricompartmental osteoarthritis of the right knee. Tubal ligation changes are suspected. IMPRESSION: 1. 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 2. Mild tricompartmental osteoarthritis of the right knee. Electronically signed by: Ritesh Gonzalez MD (03/20/2020 12:23 PM) [id number]
== END | disposition home or self-care (01) ==
LOC: RAD 10:21
PROVIDERS: ATTEND Internal Medicine
DX: M17.11 Unilateral primary osteoarthritis, right knee (principal); M25.761 Osteophyte, right knee
CPT/HCPCS: 73502; 73552

== ENCOUNTER → 2020-06-24 | Outpatient (CLI) | payer OTHER ==
[~2020-06-24] MED LIST changes: +BUPIVACAINE MPF 0.25% 10 ML VIAL. IJ ONE; +IOHEXOL 300 MG/ML 50 ML VIAL. IJ ONE; +LIDOCAINE 1% Multi-Dose 20 ML VIAL. INJ ONE; +LIDOCAINE 1% Multi-Dose 20 ML VIAL. ONE; +LIDOCAINE 1% PF 5 ML VIAL. INJ ONE; +methylPREDNISolone ACETATE 80 MG/ML VIAL. INJ ONE; +methylPREDNISolone ACETATE 80 MG/ML VIAL. ONE
--- NOTE | 2020-06-24 16:23 | RAD ---
Examination: ARTHROCENT MJR JT ASP/INJ RT History: Reason: RT HIP OSTEOARTHRITIS,PAIN, FL TIME =.7 MIN / Spl. Instructions: / History: Comparison/Correlation: None Findings: Risks and benefits of right hip joint injection for purposes of administration of Depo-Medrol and bupivacaine were discussed with the patient. Informed consent was obtained. Initial localization with fluoroscopy was performed. Fluoroscopy was used for a total of 0.7 minutes. A total of 4 images were acquired. Cleansing with Betadine overlying the right hip was performed. Overlying sterile drapes placed. 10 cc of intravenous IV was administered to the level of the joint level. 22-gauge spinal needle was placed into the hip joint capsule laterally at the head-neck junction. Total of 2.5 cc Omnipaque 300 and 1 percent lidocaine in a 50-50 mixture was injected into the right hip joint capsule confirming needle location. Subsequently, 80 mg Depo-Medrol and 3 cc 0.25 percent bupivacaine was injected into the right hip joint capsule. Additional lidocaine could not be administered into the hip joint capsule. Patient tolerated the procedure well without immediate complications. Impression: Successful administration of Depo-Medrol and bupivacaine into the right hip joint capsule. Electronically signed by: Brian Alegria MD (06/24/2020 4:20 PM) [id number]
== END ==
LOC: RAD 13:28
PROVIDERS: ATTEND Internal Medicine
DX: M16.11 Unilateral primary osteoarthritis, right hip (principal); I11.0 Hypertensive heart disease with heart failure; I50.9 Heart failure, unspecified; J44.9 Chronic obstructive pulmonary disease, unspecified; E78.00 Pure hypercholesterolemia, unspecified; F17.210 Nicotine dependence, cigarettes, uncomplicated; Z88.8 Allergy status to other drugs, medicaments and biological substances; Z79.82 Long term (current) use of aspirin; Z79.899 Other long term (current) drug therapy
CPT/HCPCS: 20610; 77002; J1040; J3490; Q9967

== ENCOUNTER → 2020-11-17 | Outpatient (CLI) | payer OTHER ==
[~2020-11-17] MED LIST changes: -BUPIVACAINE MPF 0.25% 10 ML VIAL. IJ ONE; -IOHEXOL 300 MG/ML 50 ML VIAL. IJ ONE; -LIDOCAINE 1% Multi-Dose 20 ML VIAL. INJ ONE; -LIDOCAINE 1% Multi-Dose 20 ML VIAL. ONE; -LIDOCAINE 1% PF 5 ML VIAL. INJ ONE; -methylPREDNISolone ACETATE 80 MG/ML VIAL. INJ ONE; -methylPREDNISolone ACETATE 80 MG/ML VIAL. ONE
--- NOTE | 2020-11-17 17:16 | CARD ---
MR#: [id number] Date of Study: 11/17/2020 Ordering Physician: BALTA MALDONADO, Referring Physician: BALTA MALDONADO, Tech: Mira Clayton [facility] APPROVED REPORT EXAM: Two-dimensional and M-mode echocardiogram with Doppler and color Doppler. Other Information Quality : Technically LimitedHR: 83bpm Rhythm : NSR INDICATION Dyspnea RISK FACTORS Hypertension Obesity Hyperlipidemia 2D DIMENSIONS RVDd2.6 (2.9-3.5cm)Left Atrium(2D)2.7 (1.6-4.0cm) IVSd0.7 (0.7-1.1cm)Aortic Root(2D)3.2 (2.0-3.7cm) LVDd4.7 (3.9-5.9cm)LVOT Diameter2.2 (1.8-2.4cm) PWd0.9 (0.7-1.1cm)LVDs3.6 (2.5-4.0cm) FS (%) 23.1 %SV46.8 ml LVEF(%)46.4 (>50%) Aortic Valve AoV Peak Nhan.77.6cm/sAoV VTI19.1cm AO Peak GR.2.4mmHgLVOT Peak Nhan.76.0cm/s LVOT VTI 14.26cmAO Mean GR.1mmHg REINA (VMAX)2.91vm8PZP (VTI)2.96cm2 Mitral Valve MV E Hduuqgtv77.5cm/sMV DECEL [id number] MV A Dlpysrcm81.4cm/sMV NIK35il E/A Ratio0.6MVA (PHT)3.27cm2 TDI E/Lateral E'6.0E/Medial E'4.8 Pulmonary Valve PV Peak Vzfnobzo51.2cm/sPV Peak Grad.3mmHg Tricuspid Valve TR P. Vxtftwrq506eu/sTR Peak Gr.20mmHg LEFT VENTRICLE The left ventricle is normal size. There is normal left ventricular wall thickness. The left ventricu lar systolic function is normal. Estimated ejection fraction 60-65%. There is normal LV segmental wal l motion. Transmitral Doppler flow pattern is Grade I-abnormal relaxation pattern. RIGHT VENTRICLE The right ventricle is normal size. There is normal right ventricular wall thickness. The right ventr icular systolic function is normal. ATRIA The left atrium size is normal. The right atrium size is normal. The interatrial septum is intact wit h no evidence for an atrial septal defect or patent foramen ovale as noted on 2-D or Doppler imaging. AORTIC VALVE The aortic valve is normal in structure and function. Doppler and Color Flow revealed no significant aortic regurgitation. There is no significant aortic valvular stenosis. There is no aortic valvular v egetation. MITRAL VALVE The mitral valve is normal in structure and function. There is no evidence of mitral valve prolapse. There is no mitral valve stenosis. Doppler and Color Flow revealed no mitral valve regurgitation note d. TRICUSPID VALVE The tricuspid valve is normal in structure and function. Doppler and Color Flow revealed no tricuspid valve regurgitation noted. There is no tricuspid valve stenosis. PULMONIC VALVE The pulmonary valve is normal in structure and function. Doppler and Color Flow revealed trace pulmon ic valvular regurgitation. GREAT VESSELS The aortic root is normal in size. The ascending aorta is normal in size. The IVC is normal in size a nd collapses >50% with inspiration. PERICARDIAL EFFUSION There is no evidence of significant pericardial effusion. Critical Notification Critical Value: No <Conclusion> The left ventricular systolic function is normal. Estimated ejection fraction 60-65%. There is normal LV segmental wall motion. Transmitral Doppler flow pattern is Grade I-abnormal relaxation pattern. There is no evidence of significant pericardial effusion. Signed by : Timothy Cordova, Electronically Approved : 11/17/2020 17:15:24
== END ==
LOC: ECHO 09:01
PROVIDERS: ATTEND Internal Medicine Cardiovascular Disease
DX: I25.10 Atherosclerotic heart disease of native coronary artery without angina pectoris (principal)
CPT/HCPCS: 93306

== ENCOUNTER → 2020-12-17 | Outpatient (CLI) | payer OTHER ==
--- NOTE | 2020-12-17 10:02 | RAD ---
EXAM: Chest, 2 views. HISTORY: Bronchitis. COMPARISON: None. FINDINGS: 2 views of the chest are obtained. There is no infiltrate, pleural effusion or pneumothorax . The heart is normal in size. There is a calcified granuloma within the lateral right lower thorax. There is suspected linear scarring or atelectasis within the anterior right upper lobe. There are chr onic appearing interstitial changes. There are cholecystomy clips. IMPRESSION: Chronic appearing interstitial changes. No acute pulmonary finding. Electronically signed by: Maryam Perez MD (12/17/2020 10:00 AM) [id number]
== END ==
LOC: RAD 08:41
PROVIDERS: ATTEND Internal Medicine
DX: J20.0 Acute bronchitis due to Mycoplasma pneumoniae (principal); J98.4 Other disorders of lung
CPT/HCPCS: 71046

== ENCOUNTER → 2021-02-10 | Outpatient (CLI) | payer OTHER ==
--- NOTE | 2021-02-11 09:40 | RAD ---
PROCEDURE: MG 2D BILAT SCREENING HISTORY: The patient is 65 years old and is seen for Reason: ROUTINE SCREENING. / Spl. Instructions: / History: . COMPARISON: February 07, 2020, February 07, 2019, February 07, 2018 and February 01, 2017 TECHNIQUE: CC and MLO views of both breasts were obtained. Images were processed by the [employer] computer-aided detection system. DENSITY: There are scattered fibroglandular densities. FINDINGS: Right breast: No developing mass, suspicious calcifications or architectural distortion. Left breast: Unchanged focal asymmetry within the central breast compared to 2018. No new suspicious microcatheter opacification, mass or architectural distortion. Benign-appearing calcifications. IMPRESSION: Stable bilateral mammograms. Recommend annual screening mammograms per [employer] guidelines. She will be due in one year. BI-RADS category 2 Benign Patient entered into a reminder system for annual screening mammogram. Electronically signed by: Soham Herman DO (02/11/2021 9:37 AM) [id number]
== END ==
LOC: MAMMO 10:54
PROVIDERS: ATTEND Internal Medicine
DX: Z12.31 Encounter for screening mammogram for malignant neoplasm of breast (principal)
CPT/HCPCS: 77067